=== PATIENT | male | born 1960 | race Caucasian/White ===

== ENCOUNTER 2018-01-14 19:37 | Emergency (ER) | payer OTHER ==
--- NOTE | 2018-01-14 19:40 | PDOC ---
Rapid Medical Evaluation Time Seen by Provider: 01/14/18 19:39 Medical Evaluation: Allergies Allergy/AdvReac Type Severity Reaction Status Date / Time No Known Allergies Allergy Verified 06/18/15 17:23 01/14/18 19:39 I have performed a brief in-person evaluation of this patient. The patient presents with a chief complaint of: right eye redness Pertinent physical exam findings: right subconjunctival hemorrhage I have ordered the following: nothing The patient will proceed to the ED for further evaluation. Discharge Disposition - Diagnosis Subconjunctival hemorrhage of right eye - Referrals - Patient Instructions - Post Discharge Activity
[2018-01-14 19:42] VITALS: BP 144/74; PULSE 60; TEMP 97.8; BMI 29.0
--- NOTE | 2018-01-14 20:16 | PDOC ---
History of Present Illness - General Chief Complaint: Eye Problem Stated Complaint: EYE PROBLEM Time Seen by Provider: 01/14/18 19:39 - History of Present Illness Initial Comments: 57-year-old male for evaluation of right eye redness 1 day. Patient is not on any anticoagulation. 01/14/18 20:13 Past History - Past Medical History Allergies/Adverse Reactions: Allergies Allergy/AdvReac Type Severity Reaction Status Date / Time No Known Allergies Allergy Verified 06/18/15 17:23 Home Medications: Ambulatory Orders NK [No Known Home Medication] 03/23/16 Anemia: No Asthma: No Cancer: No Cardiac Disorders: No CVA: No COPD: No CHF: No Dementia: No Diabetes: No GI Disorders: No Disorders: No HTN: No Hypercholesterolemia: No Liver Disease: No Seizures: No Thyroid Disease: No - Surgical History Abdominal Surgery: No Appendectomy: No Cardiac Surgery: No Cholecystectomy: No Lung Surgery: No Neurologic Surgery: No Orthopedic Surgery: Yes (BILA BUNIONECTOMY) - Suicide/Smoking/Psychosocial Hx Smoking History: Never smoked Have you smoked in the past 12 months: No If you are a former smoker, when did you quit?: 30 YRS Information on smoking cessation initiated: No Hx Alcohol Use: No Drug/Substance Use Hx: No Substance Use Type: None Review of Systems - Review of Systems Comments:: GENERAL/CONSTITUTIONAL: [No fever or chills. No weakness. No weight change.] HEAD, EYES, EARS, NOSE AND THROAT: [No change in vision. No ear pain or discharge. No sore throat.] CARDIOVASCULAR: [No chest pain or shortness of breath.] RESPIRATORY: [No cough, wheezing, or hemoptysis.] GASTROINTESTINAL: [No nausea, vomiting, diarrhea or constipation. No rectal bleeding.] GENITOURINARY: [No dysuria, frequency, or change in urination.] MUSCULOSKELETAL: [No joint or muscle swelling or pain. No neck or back pain.] SKIN AND BREASTS: [No rash or easy bruising.] NEUROLOGIC: [No headache, vertigo, loss of consciousness, or loss of sensation.] PSYCHIATRIC: [No depression or anxiety.] ENDOCRINE: [No increased thirst. No abnormal weight change.] HEMATOLOGIC/LYMPHATIC: [No anemia, easy bleeding, or history of blood clots.] ALLERGIC/IMMUNOLOGIC: [No hives or skin allergy. No latex allergy.] 05/14/18 20:14 *Physical Exam - Vital Signs Last Vital Signs Temp Pulse Resp BP Pulse Ox 97.8 F 60 18 144/74 96 01/14/18 19:40 01/14/18 19:40 01/14/18 19:40 01/14/18 19:40 01/14/18 19:40 - Physical Exam Comments: Right eye shows subconjunctival hemorrhage external ocular muscles are intact vision is 20/20 with glasses pupils equal round and reactive 01/14/18 20:14 *DC/Admit/Observation/Transfer Diagnosis at time of Disposition: Subconjunctival hemorrhage of right eye - Discharge Dispostion Disposition: HOME Condition at time of disposition: Stable Decision to Admit order: No - Referrals Referrals: Mic Kumar [Non Staff, Medical] - - Patient Instructions Printed Discharge Instructions: DI for Subconjunctival Hemorrhage Additional Instructions: Is subconjunctival hemorrhage which will resolve on its own in about 2-3 weeks follow-up with optometry in the next 2-3 days for treatment options return to the emergency room if symptoms worsen or go unresolved prior to follow-up - Post Discharge Activity
--- NOTE | 2018-01-14 20:20 | PDOC ---
History of Present Illness - General Chief Complaint: Eye Problem Stated Complaint: EYE PROBLEM Time Seen by Provider: 01/14/18 19:39 - History of Present Illness Initial Comments: See my prior note 01/14/18 20:18 Past History - Past Medical History Allergies/Adverse Reactions: Allergies Allergy/AdvReac Type Severity Reaction Status Date / Time No Known Allergies Allergy Verified 06/18/15 17:23 Home Medications: Ambulatory Orders NK [No Known Home Medication] 03/23/16 Anemia: No Asthma: No Cancer: No Cardiac Disorders: No CVA: No COPD: No CHF: No Dementia: No Diabetes: No GI Disorders: No Disorders: No HTN: No Hypercholesterolemia: No Liver Disease: No Seizures: No Thyroid Disease: No - Surgical History Abdominal Surgery: No Appendectomy: No Cardiac Surgery: No Cholecystectomy: No Lung Surgery: No Neurologic Surgery: No Orthopedic Surgery: Yes (BILA BUNIONECTOMY) - Suicide/Smoking/Psychosocial Hx Smoking History: Never smoked Have you smoked in the past 12 months: No If you are a former smoker, when did you quit?: 30 YRS Information on smoking cessation initiated: No Hx Alcohol Use: No Drug/Substance Use Hx: No Substance Use Type: None Review of Systems - Review of Systems Able to Perform ROS?: Yes All Other Systems: Reviewed and Negative *Physical Exam - Vital Signs Last Vital Signs Temp Pulse Resp BP Pulse Ox 97.8 F 60 18 144/74 96 01/14/18 19:40 01/14/18 19:40 01/14/18 19:40 01/14/18 19:40 01/14/18 19:40 - Physical Exam Comments: The prior note 01/14/18 20:19 *DC/Admit/Observation/Transfer Diagnosis at time of Disposition: Subconjunctival hemorrhage - Discharge Dispostion Disposition: HOME Condition at time of disposition: Stable Decision to Admit order: No - Referrals Referrals: Mic Kumar [Non Staff, Medical] - - Patient Instructions Printed Discharge Instructions: DI for Subconjunctival Hemorrhage Additional Instructions: Is subconjunctival hemorrhage which will resolve on its own in about 2-3 weeks follow-up with optometry in the next 2-3 days for treatment options return to the emergency room if symptoms worsen or go unresolved prior to follow-up - Post Discharge Activity
== END 2018-01-14 20:50 | disposition home or self-care (01) ==
LOC: JERFT 19:37
PROC: 4A07X0Z Measurement of Visual Acuity, External Approach (ICD-10-PCS; principal; 2018-01-14)
DX: H11.31 Conjunctival hemorrhage, right eye (principal)
CPT/HCPCS: 99173; 99281-25

== ENCOUNTER 2020-07-30 15:56 | Emergency (ER) | payer OTHER ==
[2020-07-30 16:01] VITALS: BP 150/61; PULSE 80; TEMP 97; BMI 30.4
== END 2020-07-30 16:45 | disposition home or self-care (01) ==
LOC: JERFT 15:56
DX: R09.82 Postnasal drip (principal)
CPT/HCPCS: 99282-25

== ENCOUNTER 2020-10-25 14:51 | Inpatient (IN) | payer OTHER ==
[2020-10-25] MEDS ORDERED: LACTATED RINGERS SOLUTION 1000 ML INFUS.BAG IV ONE (15:54)
[2020-10-25 16:54] LABS: BASO % 0.8 % (0-2.0); EOS % 0.6 % (0-4.5); HEMATOCRIT 25.6 % (35.4-49); HEMOGLOBIN 8.7 GM/dL (11.7-16.9); LYMPH % 19.8 % (8-40); MCH 31.6 pg (25.7-33.7); MEAN PLT VOLUME 10.8 fl (7.5-11.1); MONO % 5.2 % (3.8-10.2); NEUT % 73.6 % (42.8-82.8); PLATELET COUNT 180 K/MM3 (134-434); RBC 2.75 M/mm3 (4.00-5.60); RDW 14.1 % (11.9-15.9); VENOUS BASE EXCESS 0.3 mmol/L (-2-2); VENOUS O2 SATURATION 20.8 % (70-80); VENOUS PCO2 41.4 mmHg (38-52); VENOUS PH 7.401 (7.310-7.410); WHITE BLOOD COUNT 12.5 K/mm3 (4.0-10.0)
[2020-10-25 17:02] LABS: INR 1.2 (0.83-1.09); PROTHROMBIN TIME (PATIENT) 14.7 SEC (9.7-13.0)
[2020-10-25 17:04] LABS: ACTIVATED PTT 18.8 SECONDS (25.2-36.5)
[2020-10-25 17:12] LABS: POTASSIUM 4.9 mmol/L (3.5-5.1)
[2020-10-25 17:14] LABS: ALBUMIN 2.8 g/dl (3.4-5.0); BLOOD UREA NITROGEN 56.6 mg/dL (7-18)
[2020-10-25 17:18] LABS: CREATININE 0.9 mg/dL (0.55-1.3)
[2020-10-25 17:19] LABS: BILIRUBIN,TOTAL 0.3 mg/dL (0.2-1); TOT PROT 5.1 g/dl (6.4-8.2)
[2020-10-25] MEDS ORDERED: PANTOPRAZOLE SODIUM 40 MG VIAL IVPUSH ONE (18:41)
[2020-10-25 20:26] LABS: BASO % 0.5 % (0-2.0); EOS % 0.5 % (0-4.5); HEMATOCRIT 20.6 % (35.4-49); HEMOGLOBIN 7.1 GM/dL (11.7-16.9); LYMPH % 29.2 % (8-40); MCH 31.6 pg (25.7-33.7); MCHC 34.3 g/dl (32.0-35.9); MEAN CELL VOLUME 92.2 fl (80-96); MEAN PLT VOLUME 9.8 fl (7.5-11.1); MONO % 5.8 % (3.8-10.2); PLATELET COUNT 153 K/MM3 (134-434); RBC 2.23 M/mm3 (4.00-5.60); RDW 14.1 % (11.9-15.9); WHITE BLOOD COUNT 13.9 K/mm3 (4.0-10.0)
[2020-10-25] MEDS ORDERED: SODIUM CHLORIDE 1,000 ML IV STA (20:35)
[2020-10-25] MEDS: PANTOPRAZOLE SODIUM 80 MG in SODIUM CHLORIDE 100 ML IVPB SCH (20:55)
[2020-10-25] MEDS: MUPIROCIN 2% TOPICAL OINTMENT FOR DECOLONIZATION NS SCH (20:55)
[2020-10-25] MEDS: CHLORHEXIDINE GLUCONATE 4% CLEANSER FOR DECOLONIZATION TP SCH (21:25)
[2020-10-26] MEDS: PANTOPRAZOLE SODIUM 80 MG in SODIUM CHLORIDE 100 ML IVPB SCH ×2 (05:23→16:37)
[2020-10-26 10:19] LABS: BASO % 0.5 % (0-2.0); EOS % 2.1 % (0-4.5); HEMATOCRIT 25.5 % (35.4-49); HEMOGLOBIN 9.2 GM/dL (11.7-16.9); LYMPH % 26.8 % (8-40); MCH 32.6 pg (25.7-33.7); MEAN CELL VOLUME 90.4 fl (80-96); MEAN PLT VOLUME 9.4 fl (7.5-11.1); MONO % 5.5 % (3.8-10.2); NEUT % 65.1 % (42.8-82.8); PLATELET COUNT 118 K/MM3 (134-434); RBC 2.82 M/mm3 (4.00-5.60); WHITE BLOOD COUNT 10.4 K/mm3 (4.0-10.0)
[2020-10-26 10:32] LABS: INR 1.12 (0.83-1.09); PROTHROMBIN TIME (PATIENT) 13.5 SEC (9.7-13.0)
[2020-10-26 10:35] LABS: ACTIVATED PTT 28.2 SECONDS (25.2-36.5)
[2020-10-26 10:37] LABS: POTASSIUM 3.9 mmol/L (3.5-5.1)
[2020-10-26 10:39] LABS: CALCIUM 7.6 mg/dL (8.5-10.1)
[2020-10-26 10:40] LABS: MAGNESIUM 2.1 mg/dL (1.8-2.4)
[2020-10-26 10:42] LABS: ALBUMIN 2.5 g/dl (3.4-5.0); BLOOD UREA NITROGEN 32.8 mg/dL (7-18)
[2020-10-26 10:43] LABS: CREATININE 0.7 mg/dL (0.55-1.3); PHOSPHOROUS 2.4 mg/dL (2.5-4.9)
[2020-10-26 10:49] LABS: TOT PROT 4.4 g/dl (6.4-8.2)
[2020-10-26 10:50] LABS: BILIRUBIN,TOTAL 0.9 mg/dL (0.2-1)
[2020-10-26] MEDS: MUPIROCIN 2% TOPICAL OINTMENT FOR DECOLONIZATION NS SCH ×2 (11:55→21:34)
[2020-10-26] MEDS ORDERED: EPINEPHrine 1:10,000 (P-F SYR) 1 MG/10 ML DISP.SYRIN ONE (12:16)
[2020-10-26] MEDS ORDERED: EPINEPHrine 1:10,000 (P-F SYR) 1 MG/10 ML DISP.SYRIN SQ ONE (12:20)
[2020-10-26] MEDS ORDERED: ONDANSETRON 4 MG/2 ML VIAL IVPB ONE (13:01)
[2020-10-26] MEDS: DEXTROSE 5%-LACTATED RINGERS 1,000 ML IV SCH (13:14)
[2020-10-26] MEDS ORDERED: POTASSIUM PHOSPHATE 30 MM in SODIUM CHLORIDE 500 ML IVPB ONE (13:30)
[2020-10-26] MEDS: CHLORHEXIDINE GLUCONATE 4% CLEANSER FOR DECOLONIZATION TP SCH (21:35)
[2020-10-27 07:18] LABS: BASO % 0.2 % (0-2.0); EOS % 4.2 % (0-4.5); HEMATOCRIT 23.7 % (35.4-49); HEMOGLOBIN 8.2 GM/dL (11.7-16.9); LYMPH % 20.7 % (8-40); MCH 31.9 pg (25.7-33.7); MCHC 34.6 g/dl (32.0-35.9); MEAN CELL VOLUME 92.4 fl (80-96); MONO % 5.2 % (3.8-10.2); NEUT % 69.7 % (42.8-82.8); PLATELET COUNT 107 K/MM3 (134-434); RBC 2.56 M/mm3 (4.00-5.60); RDW 14.2 % (11.9-15.9); WHITE BLOOD COUNT 10.7 K/mm3 (4.0-10.0)
[2020-10-27 07:26] LABS: INR 1.09 (0.83-1.09); PROTHROMBIN TIME (PATIENT) 13.2 SEC (9.7-13.0)
[2020-10-27 07:28] LABS: ACTIVATED PTT 28.6 SECONDS (25.2-36.5)
[2020-10-27 07:30] LABS: POTASSIUM 3.8 mmol/L (3.5-5.1)
[2020-10-27 07:34] LABS: ALBUMIN 2.5 g/dl (3.4-5.0); BLOOD UREA NITROGEN 18.2 mg/dL (7-18); CALCIUM 7.5 mg/dL (8.5-10.1)
[2020-10-27 07:37] LABS: CREATININE 0.7 mg/dL (0.55-1.3); PHOSPHOROUS 3.1 mg/dL (2.5-4.9)
[2020-10-27 07:39] LABS: BILIRUBIN,TOTAL 0.9 mg/dL (0.2-1); TOT PROT 4.6 g/dl (6.4-8.2)
[2020-10-27] MEDS: MUPIROCIN 2% TOPICAL OINTMENT FOR DECOLONIZATION NS SCH (10:01)
[2020-10-27] MEDS ORDERED: PT OWN MED DRAWER 7, Y5N ONE (11:04)
[2020-10-27 13:47] LABS: HEMATOCRIT 25.4 % (35.4-49); HEMOGLOBIN 8.8 GM/dL (11.7-16.9); MCH 32.1 pg (25.7-33.7); MCHC 34.6 g/dl (32.0-35.9); MEAN CELL VOLUME 92.7 fl (80-96); MEAN PLT VOLUME 9.7 fl (7.5-11.1); PLATELET COUNT 116 K/MM3 (134-434); RBC 2.74 M/mm3 (4.00-5.60); RDW 14.2 % (11.9-15.9); WHITE BLOOD COUNT 10.6 K/mm3 (4.0-10.0)
[2020-10-27 14:30] VITALS: BMI 30.7
[2020-10-27] MEDS: DEXTROSE 5%-LACTATED RINGERS 1,000 ML IV SCH (16:57)
[2020-10-27] MEDS: PANTOPRAZOLE SODIUM 80 MG in SODIUM CHLORIDE 100 ML IVPB SCH ×2 (17:02→23:48)
[2020-10-27] MEDS ORDERED: DEXTROSE 5%-LACTATED RINGERS 1,000 ML IV SCH (18:20)
[2020-10-27 19:50] LABS: BASO % 0.4 % (0-2.0); EOS % 2.7 % (0-4.5); HEMOGLOBIN 8.4 GM/dL (11.7-16.9); LYMPH % 15.9 % (8-40); MCH 31.3 pg (25.7-33.7); MCHC 33.6 g/dl (32.0-35.9); MEAN CELL VOLUME 93.2 fl (80-96); MEAN PLT VOLUME 10.1 fl (7.5-11.1); MONO % 4.1 % (3.8-10.2); NEUT % 76.9 % (42.8-82.8); PLATELET COUNT 130 K/MM3 (134-434); RBC 2.68 M/mm3 (4.00-5.60); RDW 13.9 % (11.9-15.9); WHITE BLOOD COUNT 13.3 K/mm3 (4.0-10.0)
[2020-10-28] MEDS: PANTOPRAZOLE SODIUM 80 MG in SODIUM CHLORIDE 100 ML IVPB SCH (06:46)
[2020-10-28 07:02] LABS: BASO % 0.6 % (0-2.0); EOS % 5.3 % (0-4.5); HEMATOCRIT 22.5 % (35.4-49); LYMPH % 23.6 % (8-40); MCH 32.7 pg (25.7-33.7); MCHC 35.3 g/dl (32.0-35.9); MEAN CELL VOLUME 92.6 fl (80-96); MEAN PLT VOLUME 9.7 fl (7.5-11.1); MONO % 4.8 % (3.8-10.2); NEUT % 65.7 % (42.8-82.8); PLATELET COUNT 115 K/MM3 (134-434); RBC 2.43 M/mm3 (4.00-5.60); RDW 13.8 % (11.9-15.9); WHITE BLOOD COUNT 9.5 K/mm3 (4.0-10.0)
[2020-10-28 07:41] LABS: POTASSIUM 3.5 mmol/L (3.5-5.1)
[2020-10-28 08:03] LABS: ALBUMIN 2.4 g/dl (3.4-5.0); CALCIUM 7.5 mg/dL (8.5-10.1)
[2020-10-28 08:04] LABS: BLOOD UREA NITROGEN 12.3 mg/dL (7-18)
[2020-10-28 08:06] LABS: PHOSPHOROUS 3.4 mg/dL (2.5-4.9)
[2020-10-28 08:07] LABS: CREATININE 0.8 mg/dL (0.55-1.3)
[2020-10-28 08:08] LABS: BILIRUBIN,TOTAL 0.9 mg/dL (0.2-1); TOT PROT 4.5 g/dl (6.4-8.2)
[2020-10-28] MEDS ORDERED: PT OWN MED DRAWER 7, Y5N ONE ×3 (10:23→22:13)
[2020-10-28] MEDS: PANTOPRAZOLE 20 MG TABLET PO SCH ×2 (10:24→22:00)
[2020-10-28] MEDS: CLARITHROMYCIN 500 MG TABLET (UD) PO SCH ×2 (10:24→22:01)
[2020-10-28] MEDS: AMOXICILLIN 500 MG CAPSULE (FP) PO SCH ×2 (10:25→22:00)
[2020-10-29 07:34] LABS: HEMATOCRIT 22.6 % (35.4-49); HEMOGLOBIN 8.1 GM/dL (11.7-16.9); MCH 33.2 pg (25.7-33.7); MCHC 35.8 g/dl (32.0-35.9); MEAN CELL VOLUME 92.7 fl (80-96); MEAN PLT VOLUME 10.1 fl (7.5-11.1); PLATELET COUNT 131 K/MM3 (134-434); RBC 2.44 M/mm3 (4.00-5.60); RDW 13.6 % (11.9-15.9); WHITE BLOOD COUNT 8.3 K/mm3 (4.0-10.0)
[2020-10-29 08:58] LABS: BASO % 0.7 % (0-2.0); HEMATOCRIT 26.2 % (35.4-49); HEMOGLOBIN 9.3 GM/dL (11.7-16.9); LYMPH % 22.8 % (8-40); MCHC 35.5 g/dl (32.0-35.9); MEAN CELL VOLUME 93.1 fl (80-96); MEAN PLT VOLUME 9.5 fl (7.5-11.1); NEUT % 64.5 % (42.8-82.8); PLATELET COUNT 152 K/MM3 (134-434); RBC 2.81 M/mm3 (4.00-5.60); RDW 14.1 % (11.9-15.9); WHITE BLOOD COUNT 11.5 K/mm3 (4.0-10.0)
[2020-10-29] MEDS ORDERED: PT OWN MED DRAWER 7, Y5N ONE ×3 (09:50→21:10)
[2020-10-29] MEDS: AMOXICILLIN 500 MG CAPSULE (FP) PO SCH ×2 (09:52→21:12)
[2020-10-29] MEDS: PANTOPRAZOLE 20 MG TABLET PO SCH ×2 (09:53→21:12)
[2020-10-29] MEDS: CLARITHROMYCIN 500 MG TABLET (UD) PO SCH ×2 (09:53→21:12)
[2020-10-29 11:48] LABS: ANISOCYTOSIS 0; MACROCYTOSIS 1+; PLATELET ESTIMATE NORMAL
[2020-10-30 08:56] LABS: BASO % 0.6 % (0-2.0); EOS % 5.8 % (0-4.5); HEMATOCRIT 24.2 % (35.4-49); HEMOGLOBIN 8.5 GM/dL (11.7-16.9); LYMPH % 23.3 % (8-40); MCH 32.7 pg (25.7-33.7); MCHC 35.2 g/dl (32.0-35.9); MEAN CELL VOLUME 92.9 fl (80-96); MEAN PLT VOLUME 9.7 fl (7.5-11.1); MONO % 6.2 % (3.8-10.2); NEUT % 64.1 % (42.8-82.8); PLATELET COUNT 148 K/MM3 (134-434); RDW 13.8 % (11.9-15.9); WHITE BLOOD COUNT 9.2 K/mm3 (4.0-10.0)
[2020-10-30 09:52] VITALS: BP 113/67; PULSE 73; TEMP 98.5
[2020-10-30] MEDS: CLARITHROMYCIN 500 MG TABLET (UD) PO SCH (09:53)
[2020-10-30] MEDS: AMOXICILLIN 500 MG CAPSULE (FP) PO SCH (09:53)
[2020-10-30] MEDS: PANTOPRAZOLE 20 MG TABLET PO SCH (09:55)
[2020-10-30 11:56] LABS: ANISOCYTOSIS 2+; MACROCYTOSIS 2+; PLATELET ESTIMATE NORMAL
== END 2020-10-30 11:00 | disposition home or self-care (01) | DRG 241 ==
LOC: JER 14:51 → JERBED 18:24 → JICU 21:15 → J4S 10-27 17:25
PROVIDERS: ADMIT Family Medicine; ATTEND Family Medicine
PROC: 0W3P8ZZ Control Bleeding in Gastrointestinal Tract, Via Natural or Artificial Opening Endoscopic (ICD-10-PCS; 2020-10-25)
PROC: 0DB78ZX Excision of Stomach, Pylorus, Via Natural or Artificial Opening Endoscopic, Diagnostic (ICD-10-PCS; 2020-10-26)
PROC: 3E0G8GC Introduction of Other Therapeutic Substance into Upper GI, Via Natural or Artificial Opening Endoscopic (ICD-10-PCS; 2020-10-26)
PROC: 30233N1 Transfusion of Nonautologous Red Blood Cells into Peripheral Vein, Percutaneous Approach (ICD-10-PCS; principal; 2020-10-26 12:00)
DX: K25.0 Acute gastric ulcer with hemorrhage (principal); K57.30 Diverticulosis of large intestine without perforation or abscess without bleeding; E78.5 Hyperlipidemia, unspecified; I10 Essential (primary) hypertension; R77.8 Other specified abnormalities of plasma proteins; D64.9 Anemia, unspecified; B96.81 Helicobacter pylori [H. pylori] as the cause of diseases classified elsewhere; D62 Acute posthemorrhagic anemia
CPT/HCPCS: 36415; 36430; 36511; 74174-TC; 80053; 82272; 82728; 82803; 83540; 83550; 83605; 83690; 83735; 84100; 84484; 85025; 85027; 85610; 85730; 86850; 86900; 86901; 86922; 87040; 88305-TC; 93005; 93010; 93306-TC; 94002; 97116-GP; 97161-GP; 99291; C9803; P9038; P9058; Q9967; U0003